=== PATIENT | male | born 1950 | race American Indian/Alaskan Native ===

== ENCOUNTER 2019-01-01 05:58 | Day surgery (SDC) | payer MEDICARE ==
[2019-01-01] MEDS: NACL 0.9% 1000 ML 1,000 ML IV SCH ×2 (06:50→10:00)
[2019-01-01] MEDS ORDERED: MUCOMYST ORAL PO ONE (08:00)
[2019-01-01] MEDS ORDERED: HEPARIN 10,000 UNITS/10 ML ONE (08:22)
[2019-01-01] MEDS ORDERED: XYLOCAINE 2% INFILTRATI ONE (08:22)
[2019-01-01] MEDS ORDERED: NITROGLYCERIN SYRINGE 0 ML ONE (08:22)
[2019-01-01] MEDS ORDERED: HEPARIN/NS 5000 UNIT/500ML(CATH LAB) 1,000 ML IR ONE (08:22)
[2019-01-01] MEDS ORDERED: CALAN ONE (08:22)
[2019-01-01] MEDS ORDERED: SUBLIMAZE ONE (08:23)
[2019-01-01] MEDS ORDERED: VERSED ONE (08:23)
--- NOTE | 2019-01-01 11:04 | Short Stay Summary ---
Short Stay Documentation Date of service: 01/01/19 - History H&P: obtained from office - Allergies and Medications Current Medications: Allergies cephalexin Allergy (Unverified 01/01/19 05:59) BODY CRAMPS Home Medications Medication Instructions Recorded Confirmed Last Taken Type Aspirin [Lo-Dose Aspirin EC] 81 mg PO DAILY 01/01/19 01/01/19 12/31/18 History AtorvaSTATin [Lipitor] 40 mg PO QHS 01/01/19 01/01/19 12/31/18 History Verapamil HCl [Verapamil] 40 mg PO DAILY 01/01/19 01/01/19 12/31/18 History Active Medications Sodium Chloride (Nacl 0.9% 1000 Ml) 1,000 mls @ 100 mls/hr IV DIRECT BECKI Last Admin: 01/01/19 10:00 Dose: 150 mls/hr Documented by: - Brief post op/procedure progress note Date of procedure: 01/01/19 Pre-op diagnosis: PVD Post-op diagnosis: same Procedure: peripheral angiogram - see dictated cath report Anesthesia: local Estimated blood loss: none Condition: stable - Disposition Condition at discharge: Good Disposition: DC-01 TO HOME OR SELFCARE - Discharge Diagnoses (1) PVD (peripheral vascular disease) Status: Chronic Short Stay Discharge Plan Activity: advance as tolerated Diet: low fat, low cholesterol, low salt Wound: open to air, keep clean and dry, per your surgeon's advice Follow up with: TIN CARRILLO PA [Primary Care Provider] - 7 Days GIULIANA PALMER MD [Staff Physician] - 7 Days (Labwork in our [place] office on 01/02/2019 @ 10:30AM Follow up in our [place] office with Dr. Palmer on 01/09/2019 @ 9:30AM)
--- NOTE | 2019-01-01 11:20 | Cardiac Catherization Report ---
PERIPHERAL ANGIOGRAM REPORT INDICATIONS FOR PROCEDURE: A 68-year-old -[place] gentleman with history of claudication, mainly involving the right lower extremity of few years duration, getting worse, limiting his activities. The patient has history of chronic smoking for more than 30 years, but quit in 2004 with history of hypertension and underlying renal insufficiency and was noted to have abnormal lower extremity duplex scan and hence scheduled for contrast angiography for further evaluation of his peripheral arterial anatomy. The patient is significantly symptomatic. His symptoms involving mainly the claudication in the calf in the right lower extremity. The patient and were explained of the procedure, potential complications and alternatives of therapy available. DESCRIPTION OF PROCEDURE: The patient was brought to the catheterization laboratory, was prepared in standard fashion. The patient was evaluated for moderate sedation and was found to be appropriate candidate for sedation and received 1 mg Versed and 50 mg of fentanyl. Subsequently, right wrist area and forearm thoroughly cleansed with chlorhexidine solution and sterile drapes were applied. Local anesthesia was achieved using 2% Xylocaine. Right radial artery puncture was made using 21-gauge arterial puncture needle. A 5-Australian slender sheath was introduced. Subsequently, 125 cm 5-Australian pigtail catheter was advanced into the abdominal aorta and distal subtraction angiography of the abdominal aorta was performed using 20 mL of dye at 10 mL per second. Subsequently, catheter was advanced into the L4-L5 area into the bifurcation of the aorta. Bilateral lower extremity angiograms were performed using distal subtraction angiography and power injector in a standard fashion. A 70 mL of dye at 7 mL per second was injected and for further clarification of the iliac vessels, angiography of the left iliac artery was obtained using hand injection. The patient tolerated the procedure well, hemodynamically stable, and no untoward reaction was noted. The patient was monitored throughout the procedure with EKG monitoring and pulse oximetry. The patient was started sedation at 8:47 a.m. and ended at 9:22 a.m. At the end of the procedure, the patient is communicating normally with no focal deficits, breathing normally. Vital signs have been stable. The patient was transferred to the room in stable condition. The patient will be hydrated with IV normal saline for a total of 6 hours at 150 mL per hour considering his underlying renal dysfunction and we will obtain a BMP in the morning. FINDINGS: Following findings were noted: Abdominal aorta showed very mild atherosclerotic plaque with mild aneurysmal dilation of the distal abdominal aorta.Patent renal arteries noted. Right common and the right external iliac arteries are tortuous, but only mild disease was noted; however, right common iliac artery shows diffuse aneurysmal dilatation in the proximal and mid third. This dilation was found to be mild to moderate. Left common iliac vessel showed wide patency, tortuous, but no significant obstructive lesions were noted. Angiogram of the right lower extremity: Right common femoral artery is patent without significant disease. Right profunda femoris artery is widely patent. Right superficial femoral artery is occluded at the junction of the proximal and mid third and occluded up to the distal part. It reconstitutes in the distal SFA. Right popliteal artery is without significant disease. There is only 1-vessel runoff in the right lower extremity with patent anterior tibial artery, which is also occluded in the very distal part; Tibioperoneal trunk was occluded proximally. However posterior tibial artery is reconstituting from collaterals from the popliteal area. Angiograms of the left lower extremity: showed left common femoral artery without significant disease; however, left SFA is occluded at the ostium with widely patent left profunda femoris artery and superficial femoral artery reconstitutes very distally, almost into the popliteal artery. Excellent collaterals were noted to the popliteal area. Popliteal artery is without significant disease; Popliteal artery gives rise to the tibioperoneal trunk, which is occluded very proximally before any branches. However, large anterior tibial artery is seen which is going all the way to the foot to dorsalis pedis artery. Left peroneal and left posterior tibial arteries are not visualized. Overall, left infrapopliteal vessels are represent by single vessel left anterior tibial artery. 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 Tortuous iliac arteries with aneurysmal dilation, mild to moderate of the right common iliac artery. Both common femoral arteries are patent. There is occlusion of the mid superficial femoral artery with reconstitution in the distal superficial femoral artery on the right side with single vessel runoff . Similarly, there is total occlusion of the superficial femoral artery on the left side at the origin with reconstitution very distally near the popliteal artery and a single distal vessel runoff was noted. The patient does have some aneurysmal dilatation of the distal abdominal aorta and also right common iliac artery; however, this was found to be only mild to moderate. The patient's significant lesions are in the bilateral femoral arteries and also single vessel runoff bilaterally. The patient is symptomatic with claudication of the right calf. He does not have significant symptoms on the left side. Considering this, we can consider intervention of the right superficial femoral artery on elective basis. If left leg becomes symptomatic, then consider intervention of the left superficial femoral artery. Findings were discussed with the patient and his in detail. I explained to them and they understand. We will hydrate him and we will check his BMP and have followup appointment to the office in 1-week time. Procedure was uncomplicated. The patient tolerated the moderate sedation well. JOB# [id number] BREEZY/RICHARD OLMSTEAD
[2019-01-01 12:59] VITALS: BP 134/68
== END 2019-01-01 13:40 | disposition home or self-care (01) ==
LOC: CATHLABREC 05:58
PROVIDERS: ATTEND Internal Medicine
DX: I73.9 Peripheral vascular disease, unspecified (principal); I10 Essential (primary) hypertension; I77.819 Aortic ectasia, unspecified site; I25.2 Old myocardial infarction; E78.00 Pure hypercholesterolemia, unspecified; G47.30 Sleep apnea, unspecified; Z98.890 Other specified postprocedural states; Z79.82 Long term (current) use of aspirin; Z95.5 Presence of coronary angioplasty implant and graft; Z79.899 Other long term (current) drug therapy; Z87.891 Personal history of nicotine dependence; Z88.8 Allergy status to other drugs, medicaments and biological substances
CPT/HCPCS: 36200; 75625; 75716; 96360; 96361; 99156; 99157; C1894; J1644; J2250; J3010; J7030; Q9967

== ENCOUNTER 2019-06-18 06:16 | Day surgery (SDC) | payer MEDICARE ==
[2019-06-18] MEDS ORDERED: NACL 0.9% 500 ML 500 ML IV SCH (07:00)
[2019-06-18] MEDS ORDERED: NACL 0.9% 500 ML 500 ML ONE (07:19)
[2019-06-18 07:36] LABS: BUN/Creatinine Ratio 6; Blood Urea Nitrogen 9 mg/dL (9-20); Calcium 9.1 mg/dL (8.4-10.2); Hemolysis Index 4
[2019-06-18] MEDS ORDERED: VERSED ONE (08:21)
[2019-06-18] MEDS ORDERED: HEPARIN/NS 5000 UNIT/500ML(CATH LAB) 1,000 ML IR ONE (08:22)
[2019-06-18] MEDS ORDERED: SUBLIMAZE ONE (08:22)
[2019-06-18] MEDS ORDERED: CALAN ONE (08:23)
[2019-06-18] MEDS ORDERED: HEPARIN 10,000 UNITS/10 ML ONE (08:23)
[2019-06-18] MEDS ORDERED: XYLOCAINE 2% INFILTRATI ONE ×2 (08:23→08:52)
[2019-06-18] MEDS ORDERED: SUBLIMAZE IV ONE (08:44)
[2019-06-18] MEDS ORDERED: VERSED IV ONE (08:44)
[2019-06-18] MEDS ORDERED: HEPARIN 10,000 UNITS/10 ML 5,000 UNIT in NACL 0.9% 500 ML 500 ML IR ONE ×2 (08:53→08:54)
[2019-06-18] MEDS ORDERED: HEPARIN 10,000 UNITS/10 ML IV ONE (08:54)
--- NOTE | 2019-06-18 11:25 | Cardiac Catherization Report ---
INDICATIONS FOR PROCEDURE: A 68-year-old -[place] gentleman with history of chronic smoking and history of myocardial infarction and intervention of the proximal LAD performed in 2003 and has significant peripheral vascular disease documented on the contrast angiography in December of this year with occluded superficial femoral arteries bilaterally. Presently, he is able to walk one mile slowly, but is getting short of breath and was noted to have abnormal stress nuclear imaging. Because of his increasing symptoms, he was advised to have cardiac catheterization for definitive diagnosis and treatment. The patient is aware of the procedure, potential complications and alternatives of therapy available. The patient is willing to proceed with cardiac catheterization for further delineation of the coronary anatomy. The patient was brought to the catheterization laboratory in a fasting condition. The patient was evaluated for moderate sedation. He was felt to be an appropriate candidate for moderate sedation and received 50 mg of fentanyl and 1 mg of Versed at 8:44 a.m. Subsequently, sterile drapes were applied and local anesthesia was given in the right wrist area. Right radial artery puncture was made using 21-gauge arterial puncture needle. Subsequently, 5-[place] Citizen slender sheath was introduced. The patient received 3000 units of heparin and 5 mg of intra-arterial verapamil. Subsequently, using 6-[place] Citizen multipurpose catheter, angiograms of the left coronary artery were obtained in multiple views followed by angiograms of the right coronary artery and left ventriculogram done in FRIAS and FRANCESCO projection using hand injection. At the end of the procedure, catheter and sheath were removed. The patient was monitored throughout the procedure for side effects from moderate sedation. He was monitored with pulse oximetry, EKG monitoring and hemodynamic monitoring. The patient tolerated the moderate sedation well. Monitoring of sedation ended at 9:07 a.m. The patient was transferred to the room in stable condition. Following findings were noted. HEMODYNAMICS: Opening aortic pressure 160/64. Left ventricular pressure 160/30 mmHg. No gradient across the aortic valve. Estimated ejection fraction 45-50%. Left ventriculogram done in FRIAS and FRANCESCO projection using hand injection showed a small area of apical infarct, which is akinetic. Rest of the ventricle moving well. Overall, ejection fraction is lower limits of normal to very mildly depress in the range of 45-50%. Mitral regurgitation could not be evaluated because of limited amount of dye injected. Left coronary artery arises normally from left coronary cusp. There is eccentric distal left main lesion, 60%. LAD, which curves around the apex shows widely patent stent in the proximal part and in the mid part, there is 60-70% concentric long segmental lesion. Distal LAD without significant disease. Circumflex artery shows only mild disease. On injection of the LCA, there are excellent collaterals noted to the distal RCA including LV branches and PDA. Right coronary artery arises normally from right coronary cusp. This shows [id number] proximal and mid disease and is occluded in the distal part. Collaterals as mentioned above were noted to the distal RCA from left coronary system. These are well-developed collaterals. FINAL IMPRESSION: 1. Normal sized left ventricle with small area of hypokinesis of the apical area. Overall, ejection fraction 45-50%. 2. 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 At this time, considering his coronary anatomy including the distal left main and chronic occlusion of the RCA, it was felt the patient would benefit from surgical revascularization. The patient has underlying mild renal insufficiency. Also, as mentioned above, has significant peripheral vascular disease, being treated with medical therapy and risk factor modification. The patient will be recommended surgical revascularization and will be making an appointment to see cardiothoracic surgeon as an outpatient. In the meantime, we will continue present medical therapy including aspirin, Plavix, and atorvastatin in addition to cilostazol and verapamil. No untoward complications were noted. At the end of the procedure, the patient is communicating normally, breathing normally without any side effects from moderate sedation. JOB# [id number] BREEZY/RICHARD
[2019-06-18 12:25] VITALS: BP 130/76
== END 2019-06-18 12:46 | disposition home or self-care (01) ==
LOC: CATHLABREC 06:16
PROVIDERS: ATTEND Internal Medicine
DX: I25.10 Atherosclerotic heart disease of native coronary artery without angina pectoris (principal); I70.211 Atherosclerosis of native arteries of extremities with intermittent claudication, right leg; E78.00 Pure hypercholesterolemia, unspecified; I10 Essential (primary) hypertension; G47.30 Sleep apnea, unspecified; I25.2 Old myocardial infarction; Z95.5 Presence of coronary angioplasty implant and graft; Z98.890 Other specified postprocedural states; Z79.82 Long term (current) use of aspirin; Z79.899 Other long term (current) drug therapy; Z87.891 Personal history of nicotine dependence; Z88.8 Allergy status to other drugs, medicaments and biological substances
CPT/HCPCS: 36415; 80048; 93005; 93010; 93458; 99156; 99157; C1894; J1644; J2250; J3010; J7040; Q9967

== ENCOUNTER 2019-09-16 10:43 | Emergency (ER) | payer MEDICARE ==
--- NOTE | 2019-09-16 11:08 | Emergency Department Report ---
Blank Doc - Documentation Documentation: 69-year-old male that presents with nosebleed x1 day. Patient is stated is on blood thinner. This initial assessment/diagnostic orders/clinical plan/treatment(s) is/are subject to change based on patient's health status, clinical progression and re- assessment by fellow clinical providers in the ED. Further treatment and workup at subsequent clinical providers discretion. Patient/guardians urged not to elope from the ED as their condition may be serious if not clinically assessed and managed. Initial orders include: 1- Patient sent to Main for further evaluation and treatment 2- labs
[2019-09-16] MEDS ORDERED: OXYMETAZOLINE 0.05% NASAL SPRAY NS ONE (11:47)
[2019-09-16 12:06] LABS: Basophils % (Auto) 0.2 % (0.0-1.8); Eosinophils # (Auto) 0.3 K/mm3 (0.0-0.4); Hematocrit 33.1 % (35.5-45.6); Hemoglobin 10.8 gm/dl (11.8-15.2); Lymphocytes # (Auto) 1.5 K/mm3 (1.2-5.4); Lymphocytes % (Auto) 26.7 % (13.4-35.0); Mean Corpuscular HGB Conc 33 % (32-34); Mean Corpuscular Volume 86 fl (84-94); Monocytes # (Auto) 0.5 K/mm3 (0.0-0.8); Monocytes % (Auto) 9.8 % (0.0-7.3); Platelet Count 310 K/mm3 (140-440); Red Blood Count 3.84 M/mm3 (3.65-5.03); Red Cell Distribution Width 16.9 % (13.2-15.2)
[2019-09-16 12:10] VITALS: BP 118/62
[2019-09-16 12:15] LABS: Calcium 8.6 mg/dL (8.4-10.2)
[2019-09-16 12:17] LABS: INR 0.96 (0.87-1.13)
[2019-09-16 12:18] LABS: Partial Thromboplastin Time 29.1 Sec. (24.2-36.6)
--- NOTE | 2019-09-16 12:58 | Emergency Department Report ---
ED ENT HPI - General Chief complaint: Nosebleed Stated complaint: CONSTANT NOSE BLEED Time Seen by Provider: 09/16/19 11:06 Source: patient Mode of arrival: Ambulatory Limitations: No Limitations - History of Present Illness Initial comments: Patient is a 69-year-old male presents emergency room with complaints of epistaxis that began at 9 AM this morning. He states that he went to the bathroom and blew his nose very hard then began to have a nosebleed. He states that it was constantly bleeding and he was having a difficulty time getting it to stop. He denies getting hit in the nose. Patient states that he had a sinus surgery in November 2018. He states he is on Plavix and aspirin. - Related Data Home Medications Medication Instructions Recorded Confirmed Last Taken Aspirin [Lo-Dose Aspirin EC] 81 mg PO DAILY 01/01/19 08/27/19 08/26/19 AtorvaSTATin [Lipitor] 40 mg PO QHS 01/01/19 08/27/19 08/26/19 Cilostazol [Pletal] 75 mg PO DAILY 06/18/19 08/27/19 08/26/19 Clopidogrel [Plavix] 75 mg PO DAILY 06/18/19 08/27/19 08/26/19 Metoprolol [Lopressor TAB] 37.5 mg PO TID 08/27/19 08/27/19 08/26/19 Previous Rx's Medication Instructions Recorded Last Taken Type Oxymetazoline HCl [12 Hour Nasal 2 spray NS PRN PRN #1 spray 09/16/19 Unknown Rx Relief] Sodium Chloride [Nasal Hornell] 2 spray NS BID #1 spray 09/16/19 Unknown Rx Allergies Allergy/AdvReac Type Severity Reaction Status Date / Time cephalexin Allergy Intermediate BODY CRAMPS Verified 06/18/19 07:53 ED Dental HPI - General Chief complaint: Nosebleed Stated complaint: CONSTANT NOSE BLEED Time Seen by Provider: 09/16/19 11:06 Source: patient Mode of arrival: Ambulatory Limitations: No Limitations - Related Data Home Medications Medication Instructions Recorded Confirmed Last Taken Aspirin [Lo-Dose Aspirin EC] 81 mg PO DAILY 01/01/19 08/27/19 08/26/19 AtorvaSTATin [Lipitor] 40 mg PO QHS 01/01/19 08/27/19 08/26/19 Cilostazol [Pletal] 75 mg PO DAILY 0808/27/19 08/26/19 Clopidogrel [Plavix] 75 mg PO DAILY 06/18/19 08/27/19 08/26/19 Metoprolol [Lopressor TAB] 37.5 mg PO TID 08/27/19 08/27/19 08/26/19 Previous Rx's Medication Instructions Recorded Last Taken Type Oxymetazoline HCl [12 Hour Nasal 2 spray NS PRN PRN #1 spray 09/16/19 Unknown Rx Relief] Sodium Chloride [Nasal Hornell] 2 spray NS BID #1 spray 09/16/19 Unknown Rx Allergies Allergy/AdvReac Type Severity Reaction Status Date / Time cephalexin Allergy Intermediate BODY CRAMPS Verified 06/18/19 07:53 ED Review of Systems ROS: Stated complaint: CONSTANT NOSE BLEED Other details as noted in HPI Comment: All other systems reviewed and negative ED Past Medical Hx - Past Medical History Previous Medical History?: Yes Hx Hypertension: Yes Hx Heart Attack/AMI: Yes (2004) - Surgical History Past Surgical History?: Yes Hx Coronary Stent: Yes (1 cardiac stent at [facility]) - Social History Smoking Status: Never Smoker Substance Use Type: None - Medications Home Medications: Home Medications Medication Instructions Recorded Confirmed Last Taken Type Aspirin [Lo-Dose Aspirin EC] 81 mg PO DAILY 01/01/19 08/27/19 08/26/19 History AtorvaSTATin [Lipitor] 40 mg PO QHS 01/01/19 08/27/19 08/26/19 History Cilostazol [Pletal] 75 mg PO DAILY 06/18/19 08/27/19 08/26/19 History Clopidogrel [Plavix] 75 mg PO DAILY 06/18/19 08/27/19 08/26/19 History Metoprolol [Lopressor TAB] 37.5 mg PO TID 08/27/19 08/27/19 08/26/19 History Oxymetazoline HCl [12 Hour Nasal 2 spray NS PRN PRN #1 spray 09/16/19 Unknown Rx Relief] Sodium Chloride [Nasal Hornell] 2 spray NS BID #1 spray 09/16/19 Unknown Rx ED Physical Exam - General Limitations: No Limitations General appearance: alert, in no apparent distress - Head Head exam: Present: atraumatic, normocephalic - Eye Eye exam: Present: normal appearance - ENT ENT exam: Present: mucous membranes moist, other (dried blood clot present in the left nare, no active bleeding, right naris with no bleeding) - Respiratory Respiratory exam: Present: normal lung sounds bilaterally. Absent: respiratory distress, wheezes, rales, rhonchi, stridor, chest wall tenderness, accessory muscle use, decreased breath sounds, prolonged expiratory - Cardiovascular Cardiovascular Exam: Present: regular rate, normal rhythm, normal heart sounds. Absent: systolic murmur, diastolic murmur, rubs, gallop - Neurological Exam Neurological exam: Present: alert, oriented X3 - Psychiatric Psychiatric exam: Present: normal affect, normal mood - Skin Skin exam: Present: warm, dry, intact ED Course Vital Signs 09/16/19 09/16/19 09/16/19 11:01 11:31 11:34 Temperature 97.7 F Pulse Rate 79 71 Respiratory 20 16 12 Rate Blood Pressure 124/70 115/70 Blood Pressure [Right] O2 Sat by Pulse 99 97 100 Oximetry 09/16/19 09/16/19 11:35 12:00 Temperature 98.2 F Pulse Rate 70 69 Respiratory 12 10 L Rate Blood Pressure Blood Pressure 115/70 118/62 [Right] O2 Sat by Pulse 100 96 Oximetry ED Medical Decision Making - Lab Data Result diagrams: 09/16/19 11:17 09/16/19 11:17 Lab Results 09/16/19 09/16/19 09/16/19 Range/Units 11:17 11:17 11:17 WBC 5.6 (4.5-11.0) K/mm3 RBC 3.84 (3.65-5.03) M/mm3 Hgb 10.8 L (11.8-15.2) gm/dl Hct 33.1 L (35.5-45.6) % MCV 86 (84-94) fl MCH 28 (28-32) pg MCHC 33 (32-34) % RDW 16.9 H (13.2-15.2) % Plt Count 310 (140-440) K/mm3 Lymph % (Auto) 26.7 (13.4-35.0) % [place] % (Auto) 9.8 H (0.0-7.3) % Eos % (Auto) 5.0 H (0.0-4.3) % Baso % (Auto) 0.2 (0.0-1.8) % Lymph # 1.5 (1.2-5.4) K/mm3 [place] # 0.5 (0.0-0.8) K/mm3 Eos # 0.3 (0.0-0.4) K/mm3 Baso # 0.0 (0.0-0.1) K/mm3 Seg Neutrophils % 58.3 (40.0-70.0) % Seg Neutrophils # 3.3 (1.8-7.7) K/mm3 PT 12.7 (12.2-14.9) Sec. INR 0.96 (0.87-1.13) APTT 29.1 (24.2-36.6) Sec. Sodium 139 (137-145) mmol/L Potassium 4.1 (3.6-5.0) mmol/L Chloride 106.3 (98-107) mmol/L Carbon Dioxide 21 L (22-30) mmol/L Anion Gap 16 mmol/L BUN 13 (9-20) mg/dL Creatinine 1.5 (0.8-1.5) mg/dL Estimated GFR 56 ml/min BUN/Creatinine Ratio 9 % Glucose 110 H (75-100) mg/dL Calcium 8.6 (8.4-10.2) mg/dL - Medical Decision Making Patient is a 69-year-old male presents emergency room with complaints of epistaxis that began at 9 AM this morning. He states that he went to the bathroom and blew his nose very hard then began to have a nosebleed. He states that it was constantly bleeding and he was having a difficulty time getting it to stop. He denies getting hit in the nose. Patient states that he had a sinus surgery in November 2018. He states he is on Plavix and aspirin. on exam: dried blood clot present in the left nare, no active bleeding, right naris with no bleeding. Vitals are normal. Labs are stable, H/H stable at 10.8/33.1. Had patient blow his nose and then Afrin was placed in the left naris. Patient was observed in the emergency department for a couple of hours and had no further episodes of epistaxis. Patient given prescription for Afrin if bleeding were to return and to return to the ED immediately. pt given a prescription for nasal saline to keep nares moisturized. advised pt to please use medication as prescribed. Follow-up with a primary care doctor in the next 3 days for reexamination. Return to the emergency room immediately if bleeding returns. Critical care attestation.: If time is entered above; I have spent that time in minutes in the direct care of this critically ill patient, excluding procedure time. ED Disposition Clinical Impression: Epistaxis Disposition: DC-01 TO HOME OR SELFCARE Is pt being admited?: No Does the pt Need Aspirin: No Condition: Stable Instructions: Epistaxis (ED) Additional Instructions: Please use medication as prescribed. Follow-up with a primary care doctor in the next 3 days for reexamination. Return to the emergency room immediately if bleeding returns. Prescriptions: Oxymetazoline HCl [12 Hour Nasal Relief] 2 spray NS PRN PRN #1 spray PRN Reason: nosebleed Sodium Chloride [Nasal Hornell] 2 spray NS BID #1 spray Referrals: LEENA VICTORIA MD [Referring] - 2-3 Days Time of Disposition: 13:02 Print Language: PALAUAN
== END 2019-09-16 13:30 | disposition home or self-care (01) ==
LOC: ED 10:43
DX: R04.0 Epistaxis (principal); I10 Essential (primary) hypertension; Z88.1 Allergy status to other antibiotic agents; Z79.82 Long term (current) use of aspirin; Z79.899 Other long term (current) drug therapy; Z95.1 Presence of aortocoronary bypass graft
CPT/HCPCS: 36415; 80048; 85025; 85610; 85730; 99283